=== PATIENT | male | born 2000 | race Caucasian/White ===

== ENCOUNTER 2020-01-31 00:42 | Emergency (ER) | payer MEDICAID, SELFPAY ==
[2020-01-31 00:46] VITALS: BP 144/87; PULSE 105; RESP 16; TEMP 36.7; O2SAT 98; BMI 36.6
--- NOTE | 2020-01-31 02:22 | PC.NURSE ---
PT PRESENTS WITH BILATERAL ORBITAL EDEMA. REPORTS RUBBING EYES EARLIER IN EVENING DUE TO ITCHINESS, USING VISINE, THEN WAKING UP WITH SWOLLEN ORBITS AND LIDS A LITTLE WHILE LATER. NO ORAL ANGIOEDEMA NOTED, PT SPEAKING FULL CLEAR SENTENCES. NO RASHES NOTED. AWAITING MD PRIMARY EVAL. AWARE OF PLAN OF CARE.
--- NOTE | 2020-01-31 02:52 | ED_ITS ---
HPI - Allergic Reaction General Chief complaint: Allergic Reaction Stated complaint: ALLERGIC REACTION Time Seen by Provider: 01/31/20 01:57 Source: patient Mode of arrival: ambulatory Limitations: no limitations History of Present Illness HPI narrative: this is a 19-year-old male who presents with bilateral eye itching this started approximately 6 hours ago and then after taking a nap patient states that he woke up to find his eyes swollen. Patient's recent history is significant for having taken naproxen just prior to this event. He denies taking anything at home for the swelling and otherwise denies any fevers, chills, contact use, injury to the eyes. Patient denies any lip or tongue swelling as well as denying any difficulty with breathing or swallowing. Related Data Allergies Allergy/AdvReac Type Severity Reaction Status Date / Time shrimp Allergy Unknown FACIAL Unverified 12/26/19 17:01 REDNESS AND SWELLING Shrimp (Diagnostic) Allergy Unknown Uncoded 01/19/18 00:00 Review of Systems Review of Systems: Pertinent positives and negatives as stated in HPI and 10 point review of systems is otherwise negative. [facility] Past Medical History Source: nursing notes reviewed Medical History No known health problems Social History Social History Alcohol intake: never Smoking Status: Never smoker Advance Directives: No Physical Exam Vital Signs: Vital Signs: Vital Signs Temp Pulse Resp BP Pulse Ox 01/31/20 00:46 98.0 F 105 H 16 144/87 H 98 Body Mass Index 36.6 VITAL SIGNS: Reviewed. GENERAL: Well developed, well nourished, in no acute distress. HEAD: Normocephalic/atraumatic, EYES: PERRLA, EOMI intact without pain, no nystagmus/pallor/icterus noted , mild bilateral swelling noted to the upper and lower lids of both eyes without conjunctival injection or purulence drainage EARS: Ext canals without abnormality, TMs non-bulging and non-erythematous NOSE: Nares patent bilateral OROPHARYNX: no oral lesions noted, posterior pharynx clear and non-erythematous without noted tonsillar enlargement/erythema/exudates, no lip/tongue swelling or trismus noted and no stridor NECK: Supple, no adenopathy LUNGS: Normal breath sounds. No adventitious sounds or accessory muscle use. SpO2<98> CARDIOVASCULAR: Regular rate and rhythm without noted murmurs, no JVD or lower extremity edema. ABDOMEN: Soft, non-tender, non-distended with bowel sounds. No rigidity. No guarding. No palpable masses or hernias noted MUSCULOSKELETAL: No tenderness, deformities, or effusions noted on gross inspection. EXTREMITIES: No cyanosis, clubbing or edema. SKIN: Inspection of the skin reveals no rashes, ulcerations, jaundice, pallor, or petechiae. NEUROLOGIC: Alert and oriented x 4. Strength and sensation to light touch were grossly intact x 4. Course Course Course Narrative: This is a 19-year-old male with history and clinical presentation consistent with allergic reaction suspect secondary to naproxen use without involvement of the oral or upper airway. Patient was provided with Benadryl and was observed to have gradual improvement of eye swelling. Patient was cautioned to inform any healthcare provider that he is allergic to naproxen. Discharge Plan Discharge Clinical Impression: Allergic reaction Qualifiers: Encounter type: initial encounter Qualified Code(s): T78.40XA - Allergy, unspecified, initial encounter Patient Disposition: Home, Self-Care Instructions: General Allergic Reaction (ED) Additional Instructions: 1. Benadryl, 1 tablet, orally, every 8 hours for the next 24 hours. 2. Visine for allergy eyes, available at every drug store [facility] [place] apply to both eyes as directed on the outside packaging. 3. You are considered to be allergic to naproxen at this time. The patient and/or family acknowledge understanding of results (as applicable), diagnosis, treatment plan, need for follow up, and symptoms that should prompt a return to the emergency room. Referrals: [facility] [Primary Care Provider] - 2 days ( Allergic reaction to naproxen) Interventions: ED Discharge Assessment Last Done: 01/31/20 04:13 Discharge Date/Time: 01/31/20 04:14
[2020-01-31] MEDS: diphenhydrAMINE HCL 25 MG TABLET PO (02:53)
--- NOTE | 2020-01-31 02:53 | PC.NURSE ---
PT MEDICATED PER MAR AWAITING IMPROVEMENT IN SYMPTOMS.
== END 2020-01-31 04:14 | disposition home or self-care (01) ==
PROVIDERS: Emergency Provider Student in an Organized Health Care Education/Training Program
DX: T78.40XA Allergy, unspecified, initial encounter (principal); R22.0 Localized swelling, mass and lump, head; X58.XXXA Exposure to other specified factors, initial encounter
CPT/HCPCS: 99283; 99284; Q0163

== ENCOUNTER 2020-10-25 02:44 | Emergency (ER) | payer MEDICAID, SELFPAY ==
--- NOTE | ~2020-10-25 | XR_ITS ---
EXAMINATION: XR CHEST CLINICAL INFORMATION: Productive cough COMPARISON: 05/02/2019 TECHNIQUE: 2 views of the chest were obtained. FINDINGS: The lungs are clear with no focal consolidation. No evidence of pneumothorax, pulmonary edema, or pleural effusions. The cardiomediastinal silhouette is unremarkable. No acute osseous findings. XR/XR chest 2V IMPRESSION: No acute cardiopulmonary findings.
[2020-10-25 03:19] VITALS: BP 127/65; PULSE 90; RESP 18; TEMP 36.8; O2SAT 96; BMI 44.7
[2020-10-25 04:29] LABS: COVID-19 Test Negative (Negative)
--- NOTE | 2020-10-25 05:06 | ED_ITS ---
HPI - Asthma General Chief Complaint: Upper Respiratory Symptoms Stated Complaint: SOB/cough Time Seen by Provider: 10/25/20 05:05 Source: patient Mode of arrival: ambulatory History of Present Illness HPI Narrative: 20-year-old male with history of asthma comes in with variable problems with nasal congestion, cough, chest tightness and the sensation of shortness of breath. He does describe an isolated incidence of blood-streaked mucus approximately 1 week ago but denies any since that time. Related Data Previous Rx's Medication Instructions Recorded albuterol sulfate [Ventolin HFA] 2 puff INHALATION Q4-6H PRN #1 ea 10/25/20 prednisone 40 mg PO DAILY 4 Days #8 tab 10/25/20 Allergies Allergy/AdvReac Type Severity Reaction Status Date / Time shrimp Allergy Unknown FACIAL Unverified 12/26/19 17:01 REDNESS AND SWELLING Shrimp (Diagnostic) Allergy Unknown Swelling Uncoded 10/25/20 03:18 Review of Systems Review of Systems: Pertinent positives and negatives as stated in HPI and 10 point review of systems is otherwise negative. [facility] Past Medical History Source: nursing notes reviewed Medical History No known health problems Social History Social History Alcohol intake: never Advance Directives: No Advance Directives Information Provided: No Physical Exam Vital Signs: Vital Signs: Last Vital Signs Temp 98.2 F 10/25/20 03:19 Pulse 90 10/25/20 03:19 Resp 18 10/25/20 03:19 BP 127/65 10/25/20 03:19 Pulse Ox 96 10/25/20 03:19 Body Mass Index 44.7 VITAL SIGNS: Reviewed. GENERAL: Well developed, well nourished, in no acute distress. HEAD: Normocephalic/atraumatic EYES: PERRLA, EOMI EARS: Ext canals without abnormality, TMs non-bulging and non-erythematous NOSE: Nasal congestion OROPHARYNX: no oral lesions noted, posterior pharynx clear and non-erythematous without noted tonsillar enlargement/erythema/exudates NECK: Supple, no adenopathy LUNGS: Normal breath sounds. No adventitious sounds or accessory muscle use. SpO2<96> CARDIOVASCULAR: Regular rate and rhythm without noted murmurs ABDOMEN: Soft, non-tender, non-distended with bowel sounds. SKIN: Inspection of the skin reveals no rashes NEUROLOGIC: Alert and oriented x 4. Course Course Course Narrative: 20-year-old male with history and clinical presentation consistent with mild asthma exacerbation and review of all investigations otherwise negative for acute findings. Patient was provided with initial steroids as well as albuterol treatment and discharged home in stable condition. MDM - Asthma Lab Data Labs: Lab Results 10/25/20 Range/Units 04:04 COVID-19 (ADAN) Negative (Negative) COVID-19 Clin Com See Note Discharge Plan Discharge Clinical Impression: Asthma exacerbation Patient Disposition: Home, Self-Care Instructions: Albuterol (By breathing), Prednisone (By mouth), Loratadine (By mouth), Fluticasone (Into the nose), Asthma (ED) Additional Instructions: 1. Recommend that you start using [id number] loratadine (Claritin) as well as Flonase for better control of your asthma. 2. Please follow-up with your primary care provider in the next 2-3 days for re- evaluation and further outpatient management. Return to the ER for acute worsening of symptoms. Prescriptions: New prednisone 20 mg tablet 40 mg PO DAILY 4 Days Qty: 8 RF: 0 albuterol sulfate [Ventolin HFA] 90 mcg/actuation HFA aerosol inhaler 2 puff inhalation Q4-6H PRN (Reason: shortness of breath or wheezing) Qty: 1 RF: 0 Referrals: Physician,Unknown [Primary Care Provider] - 2 days
[2020-10-25] MEDS: predniSONE 20 MG TABLET 40 MG PO (05:14)
[2020-10-25] MEDS: Albuterol Sulfate 90 MCG 8 GM INHALER 4 PUFF INHALE (05:14)
[2020-10-25 05:15] VITALS: BP 128/68; PULSE 86; RESP 19; O2SAT 96
== END 2020-10-25 05:20 | disposition home or self-care (01) ==
PROVIDERS: Emergency Provider Student in an Organized Health Care Education/Training Program
DX: J45.901 Unspecified asthma with (acute) exacerbation (principal); R06.02 Shortness of breath; Z20.822 Contact with and (suspected) exposure to COVID-19
CPT/HCPCS: 36415; 71046; 87635; 99283

== ENCOUNTER 2021-12-07 22:16 | Emergency (ER) | payer MEDICAID, SELFPAY ==
--- NOTE | ~2021-12-07 | XR_ITS ---
EXAMINATION: XR HAND, LEFT CLINICAL INFORMATION: Pain. Decreased range of motion. COMPARISON: None TECHNIQUE: PA, lateral, and oblique views of the left hand. FINDINGS: The bones and soft tissues are normal. No fracture. Alignment is anatomic. Joint spaces are maintained. No erosions or soft tissue calcifications. XR/XR hand LT min 3V IMPRESSION: Normal left hand.
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
[2021-12-07 22:19] VITALS: BP 149/91; PULSE 100; RESP 18; TEMP 37.2; O2SAT 97; BMI 45.3
[2021-12-07 22:23] VITALS: BP 132/74; PULSE 106; O2SAT 98
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
[2021-12-08 00:30] VITALS: BP 120/64; PULSE 73; RESP 18; TEMP 36.6; O2SAT 95
[2021-12-08] MEDS: Acetaminophen 325 MG TABLET 975 MG PO (00:42)
[2021-12-08] MEDS: Ibuprofen 600 MG TABLET PO (00:42)
== END 2021-12-08 01:05 | disposition home or self-care (01) ==
PROVIDERS: Emergency Provider Internal Medicine
DX: S16.1XXA Strain of muscle, fascia and tendon at neck level, initial encounter (principal); S39.012A Strain of muscle, fascia and tendon of lower back, initial encounter; S60.222A Contusion of left hand, initial encounter; V43.52XA Car driver injured in collision with other type car in traffic accident, initial encounter; R51.9 Headache, unspecified; Y93.89 Activity, other specified; Y92.414 Local residential or business street as the place of occurrence of the external cause; Y99.9 Unspecified external cause status
CPT/HCPCS: 70450; 72125; 73130; 99284

== ENCOUNTER 2022-04-09 06:04 | Emergency (ER) | payer MEDICAID, SELFPAY ==
--- NOTE | ~2022-04-09 | XR_ITS ---
EXAMINATION: XR CHEST CLINICAL INFORMATION: Cough and fever COMPARISON: October 25, 2020 TECHNIQUE: 2 views of the chest were obtained. FINDINGS: No significant abnormality is noted involving the heart, lungs, mediastinum, bony thorax or soft tissues. XR/XR chest 2V IMPRESSION: No acute disease.
[2022-04-09 06:20] VITALS: BP 157/82; PULSE 99; RESP 20; TEMP 36.2; O2SAT 96; BMI 43.5
[2022-04-09 06:47] LABS: COVID-19 Test Negative (Negative); IDNOW Serial# 16C4AD1C
[2022-04-09 06:50] LABS: IDNOW Serial# BCCEAD1C; Influenza A Positive (Negative); Influenza B2 Negative (Negative)
[2022-04-09 07:01] VITALS: BP 126/82; PULSE 99; RESP 15; TEMP 37.1; O2SAT 95
--- NOTE | 2022-04-09 07:03 | ED_ITS ---
HPI - General Adult General Chief complaint: Upper Respiratory Symptoms Stated complaint: multiple complaints Time Seen by Provider: 04/09/22 06:43 Source: patient Limitations: no limitations History of Present Illness HPI narrative: This is 21-year-old male who has been ill for over a week with cough, intermittent fevers, diarrhea, sore throat. The patient notes he has history of asthma and has run out of his inhaler. He has some right posterior chest pain that is worse when he coughs. He denies being short of breath. Denies nausea vomiting, has been able to take fluids but has had poor appetite. Related Data Previous Rx's Medication Instructions Recorded albuterol sulfate 90 mcg/actuation 2 puff inhalation Q4-6H PRN 10/25/20 aerosol inhaler (Ventolin HFA) shortness of breath or wheezing #1 ea prednisone 20 mg tablet 40 mg PO DAILY 4 days #8 tabs 10/25/20 acetaminophen 500 mg tablet 1,000 mg PO QID PRN pain #30 tabs 12/08/21 cyclobenzaprine 5 mg tablet 5 mg PO TID PRN muscle spasm #14 12/08/21 tabs ibuprofen 600 mg tablet 600 mg PO Q6H PRN pain #20 tabs 12/08/21 albuterol sulfate 90 mcg/actuation 2 puff inhalation Q4-6H PRN 04/09/22 aerosol inhaler (ProAir HFA) shortness of breath or wheezing #8.5 grams vlvlkfqftjlrzxj-fzycqwydtpszy-FV 4 10 ml PO Q4H 7 days #420 mL 04/09/22 mg-10 mg-20 mg/5 mL oral liquid ibuprofen 600 mg tablet 600 mg PO Q6H PRN pain #30 tabs 04/09/22 Allergies Allergy/AdvReac Type Severity Reaction Status Date / Time shrimp Allergy Unknown FACIAL Verified 04/09/22 06:23 REDNESS AND SWELLING Shrimp (Diagnostic) Allergy Unknown Swelling Uncoded 04/09/22 06:23 Review of Systems Review of Systems: Yes all other systems are reviewed and are negative Constitutional: Constitutional: Reports as per HPI, Reports body ache(s) and Reports fever(s) Eyes: Eyes: Reports as per HPI and Reports no additional eye complaints ENT: Reports system reviewed and no additional complaints, except as documented, Reports as per HPI, Reports nasal congestion and Reports sore throat Cardiovascular: Cardiovascular: Reports as per HPI, Reports chest pain and Denies dyspnea Respiratory: Respiratory: Reports as per HPI, Reports cough and Denies dyspnea Gastrointestinal: Gastrointestinal: Reports as per HPI, Denies abdominal pain, Reports diarrhea and Denies vomiting Genitourinary: Genitourinary: Reports as per HPI, Denies hematuria, Denies dysuria and Denies urinary frequency Musculoskeletal: Musculoskeletal: Reports no additional musculoskeletal complaints and Denies numbness Integumentary/Breasts: Skin/Breast: Reports as per HPI and Denies rash Neurologic: Reports as per HPI, Denies focal weakness and Denies numbness Psychiatric: Psychiatric: Reports no additional psychiatric complaints and Reports as per HPI Endocrine: Endocrine: Reports no additional endocrine complaints and Reports as per HPI Hematologic/Lymphatic: Hematologic/Lymphatic: Reports no additional hematologic/lymphatic complaints, Reports as per HPI and Reports other (No peripheral edema) [facility] Past Medical History Medical History No known health problems Social History Social History Alcohol intake: never Advance Directives: No Advance Directives Information Provided: Yes Physical Exam ED Vital Signs: Vital Signs - 24 hr 04/09/22 06:20 04/09/22 07:01 04/09/22 08:09 Temperature 97.2 F 98.8 F Pulse Rate 99 99 99 Respiratory Rate 20 15 16 Blood Pressure 157/82 H 126/82 Pulse Oximetry 96 95 Oxygen Delivery Method Room Air Room Air BMI result Body Mass Index 43.5 Const General: no acute distress Orientation/consciousness: patient oriented x3 HENMT Head: Yes normal to inspection General nose exam: Normal external nose present Mouth: moist mucous membranes Throat: Yes posterior oropharynx normal, Yes tonsils normal and Yes uvula midline Eyes Eyelids: Yes eyelids normal Conjunctivae: conjunctivae normal Pupils: Equal, round and reactive pupils present Neck Neck: Yes supple Resp Effort & Inspection: normal respiratory effort Auscultation: clear to auscultation bilaterally Cardio Rate: regular rate Rhythm: regular rhythm Heart sounds: S1 normal heart sound present, S2 normal heart sound present, no gallops, no murmurs and no rubs GI Inspection: No distended Palpation (GI): Soft to palpation and nontender Auscultation: normal bowel sounds Skin General skin exam: other (Warm and dry) Neuro General: patient oriented x3 and CN's II-XI intact bilaterally Cranial nerves: Yes Equal, round and reactive pupils present Extrem General: Yes no pedal edema Psych Affect: normal affect Attitude: cooperative Medications Administered Discontinued Medications Generic Name Dose Route Start Last Admin Trade Name Freq PRN Reason Stop Dose Admin Albuterol Sulfate 2.5 mg 04/09/22 07:01 04/09/22 08:08 Albuterol Sulfate (0.083%) 2.5 Mg/3 Ml Vial.Neb INHALE 04/09/22 07:02 2.5 mg ONCE ONE Administration Ibuprofen 600 mg 04/09/22 07:01 04/09/22 07:32 Ibuprofen 600 Mg Tablet PO 04/09/22 07:02 600 mg ONCE ONE Administration Medical Decision Making Medical Decision Making [facility] Narrative: Patient with flu symptoms for 3 days. Patient is positive for influenza A. Chest x-ray negative. Patient is out of the window for Tamiflu. Will treat with cough medicine, antipyretics, recommend p.o. fluid Lab Data [facility] Lab Attestation statement: I reviewed the patient's lab results. Labs: Lab Results 04/09/22 04/09/22 Range/Units 06:25 06:25 COVID-19 (ADAN) Negative (Negative) COVID-19 Clin Com See Note Influenza Type A (WANDER) Positive A (Negative) Influenza Type B (WANDER) Negative (Negative) Influenza A & B Note See Note Radiology Impression Discussion of test interpretation with radiology: I have reviewed the radiologist's reading. Radiologist Impression: Chest x-ray: No acute pathology Discharge Plan Discharge Clinical Impression: Influenza A Patient Disposition: Home, Self-Care Instructions: Influenza (ED) Additional Instructions: Use ibuprofen for pain or fever. Use the cough medicine to help suppress your cough. Use albuterol for your asthma as needed. Return for any new or worsened symptoms. Prescriptions: New ibuprofen 600 mg tablet 600 mg PO Q6H PRN (Reason: pain) Qty: 30 0RF pbpjieoztqtxad-kjcvfwiworbz-GO 4-10-20 mg/5 mL liquid 10 ml PO Q4H 7 Days Qty: 420 0RF Rx Instructions: Maximum 4 doses per day albuterol sulfate [ProAir HFA] 90 mcg/actuation HFA aerosol inhaler 2 puff inhalation Q4-6H PRN (Reason: shortness of breath or wheezing) Qty: 8.5 0RF No Action prednisone 20 mg tablet 40 mg PO DAILY 4 Days Qty: 8 0RF albuterol sulfate [Ventolin HFA] 90 mcg/actuation HFA aerosol inhaler 2 puff inhalation Q4-6H PRN (Reason: shortness of breath or wheezing) Qty: 1 0RF acetaminophen 500 mg tablet 1,000 mg PO QID PRN (Reason: pain) Qty: 30 0RF cyclobenzaprine 5 mg tablet 5 mg PO TID PRN (Reason: muscle spasm) Qty: 14 0RF Rx Instructions: This medication may cause drowsiness so no driving for 8 hours after taking ibuprofen 600 mg tablet 600 mg PO Q6H PRN (Reason: pain) Qty: 20 0RF Interventions: ED Discharge Assessment Last Done: 04/09/22 08:18 Discharge Date/Time: 04/09/22 08:18
--- NOTE | 2022-04-09 07:13 | PC.NURSE ---
assumed care of patient, pt aox3, calm and cooperative, VSS, plan for duoneb and ibuprofen
[2022-04-09] MEDS: Ibuprofen 600 MG TABLET PO (07:32)
[2022-04-09] MEDS: Albuterol Sulfate (0.083%) 2.5 MG/3 ML VIAL.NEB INHALE (08:08)
[2022-04-09 08:09] VITALS: PULSE 99; RESP 16; O2SAT 95
== END 2022-04-09 08:18 | disposition home or self-care (01) ==
PROVIDERS: Emergency Provider Emergency Medicine
DX: J11.1 Influenza due to unidentified influenza virus with other respiratory manifestations (principal); Z20.822 Contact with and (suspected) exposure to COVID-19
CPT/HCPCS: 71046; 87502; 87635; 94640; 99284

== ENCOUNTER 2023-12-02 01:57 | Emergency (ER) | payer MEDICAID, SELFPAY ==
--- NOTE | ~2023-12-02 | CT_ITS ---
EXAMINATION: CT HEAD WITHOUT CONTRAST CLINICAL INFORMATION: Closed head injury COMPARISON: CT head 12/07/2021 TECHNIQUE: Contiguous axial imaging was performed from the skull base to vertex without intravenous administration of contrast. This CT examination was performed using dose optimization techniques as appropriate, variously including the following: *Automated exposure control *Adjustment of mA and/or kV according to patient size (this includes techniques or standardized protocols for targeted exams where dose is matched to indication/reason for exam; i.e. extremities or head) *Use of iterative reconstruction technique DLP: 934 mGy-cm FINDINGS: CT head: No intracranial hemorrhage, tumors or acute infarcts identified. The orbits and globes are normal in appearance. Ventricles and sulci are normal in size and configuration. Incidental note made of a 7 mm dense ossification associated with the right parasagittal frontal bone which may represent an incidental osteoma. No significant opacification of the visualized paranasal sinuses, mastoid air cells and middle ear cavities. CT/CT head/brain wo IV con IMPRESSION: Normal unenhanced CT of the head. Electronically signed by: Isac Darden MD 12/02/2023 03:00 AM EDT
[2023-12-02 01:58] VITALS: BP 124/82; PULSE 95; RESP 18; TEMP 36.8; O2SAT 97; BMI 40.9
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
[2023-12-02 02:14] VITALS: BP 127/73; PULSE 83; RESP 17; TEMP 37.2; O2SAT 98
[2023-12-02 03:50] VITALS: BP 114/66; PULSE 79; RESP 20; TEMP 37.2; O2SAT 98
[2023-12-02 04:01] VITALS: BP 114/66; PULSE 79; RESP 20; TEMP 37.2; O2SAT 98
== END 2023-12-02 04:01 | disposition home or self-care (01) ==
PROVIDERS: Emergency Provider Internal Medicine
DX: S01.312A Laceration without foreign body of left ear, initial encounter (principal); Y08.02XA Assault by strike by baseball bat, initial encounter; Y93.9 Activity, unspecified; Y92.9 Unspecified place or not applicable; Y99.9 Unspecified external cause status
CPT/HCPCS: 12011; 70450; 99284

== ENCOUNTER 2024-04-11 01:37 | Emergency (ER) | payer MEDICAID, SELFPAY ==
--- NOTE | ~2024-04-11 | CT_ITS ---
CLINICAL HISTORY: headache Exam: CT head without intravenous contrast. Comparison: December 02, 2023. Findings: Cavum septum pellucidum ventricular variant is evident. No hydrocephalus. Attenuation of the brain parenchyma is within normal limits. Lainez-white differentiation is well preserved. No intracranial hemorrhage. No midline shift or mass effect. Mild mucosal thickening within the left ethmoid air cells with edema along the left nasal turbinates. No air-fluid level seen within the paranasal sinuses. No calvarial fractures. Impression: 1. No acute intracranial findings. 2. Mild left ethmoid sinus disease with mucosal edema throughout the left nasal turbinates. This document has been electronically signed by: Keith Field MD on 04/11/2024 05:27:22
[2024-04-11 01:42] VITALS: BP 153/95; PULSE 96; RESP 20; TEMP 36.8; O2SAT 99; BMI 43.3
[2024-04-11] MEDS: Acetaminophen 325 MG TABLET 975 MG PO (03:17)
[2024-04-11 03:39] VITALS: BP 146/70; PULSE 83; RESP 16; TEMP 36.8; O2SAT 98
--- NOTE | 2024-04-11 04:38 | ED_ITS ---
HPI - Headache General Chief Complaint: Headache Stated Complaint: dizziness, sharp pain on top of head Time Seen by Provider: 04/11/24 04:33 Source: patient Mode of arrival: ambulatory Limitations: no limitations History of Present Illness ED Provider: DR. Henning HPI Narrative: 23-year-old male came in for evaluation of headache and feeling dizzy, generalized body ache symptoms started after sniffing cocaine, patient also feels generalized weakness, sneezing, sore throat no other sick contacts. Related Data Previous Rx's ?Medication ?Instructions ?Recorded albuterol sulfate 90 mcg/actuation 2 puff inhalation Q4-6H PRN 10/25/20 aerosol inhaler (Ventolin HFA) shortness of breath or wheezing #1 ea prednisone 20 mg tablet 40 mg (2 x 20 mg) PO DAILY 4 days 10/25/20 #8 tabs acetaminophen 500 mg tablet 1,000 mg (2 x 500 mg) PO QID PRN 12/08/21 pain #30 tabs cyclobenzaprine 5 mg tablet 5 mg PO TID PRN muscle spasm #14 12/08/21 tabs ibuprofen 600 mg tablet 600 mg PO Q6H PRN pain #20 tabs 12/08/21 albuterol sulfate 90 mcg/actuation 2 puff inhalation Q4-6H PRN 04/09/22 aerosol inhaler (ProAir HFA) shortness of breath or wheezing #8.5 grams biormwvwqxwkxhr-ftwkzsgacumsw-HQ 4 10 ml PO Q4H 7 days #420 mL 04/09/22 mg-10 mg-20 mg/5 mL oral liquid ibuprofen 600 mg tablet 600 mg PO Q6H PRN pain #30 tabs 04/09/22 Allergies Allergy/AdvReac Type Severity Reaction Status Date / Time shrimp Allergy Unknown FACIAL Verified 04/11/24 01:47 REDNESS AND SWELLING Shrimp (Diagnostic) Allergy Unknown Swelling Uncoded 04/11/24 01:47 Review of Systems Review of Systems: All other systems are reviewed and are negative Constitutional: Reports as per HPI and Reports no additional constitutional complaints Eyes: Reports as per HPI and Reports no additional eye complaints Reports system reviewed and no additional complaints, except as documented Cardiovascular: Reports as per HPI and Reports no additional cardiovascular complaints Respiratory: Reports as per HPI and Reports no additional respiratory complaints Gastrointestinal: Reports as per HPI and Reports no additional gastrointestinal complaints Genitourinary: Reports no additional female genitourinary complaints Musculoskeletal: Reports no additional musculoskeletal complaints Skin/Breast: Reports system reviewed and no additional complaints, except as docu Psychiatric: Reports no additional psychiatric complaints Endocrine: Reports no additional endocrine complaints Hematologic/Lymphatic: Reports no additional hematologic/lymphatic complaints Allergic/Immunologic: Reports no additional allergic/immunologic complaints Reports system reviewed and no additional complaints, except as documented and Reports Abnormal speech present [facility] Past Medical History Medical History No known health problems Social History Social History Alcohol intake: current Alcohol intake frequency: holidays/special occasions only Smoked in Last 30 Days: Yes Use of substances other than those prescribed or required for medical reasons: Yes Substance Use Type: Crack/Cocaine Advance Directives: No Advance Directives Information Provided: Yes Physical Exam Vital Signs: Vital Signs: Last Vital Signs Temp 98.3 F 04/11/24 05:46 Pulse 79 04/11/24 05:46 Resp 18 04/11/24 05:46 BP 123/69 04/11/24 05:46 Pulse Ox 97 04/11/24 05:46 O2 Del Method Room Air 04/11/24 05:46 BMI result Body Mass Index 43.3 Vital signs have been reviewed and appear to be correct. Blood pressure elevated. Heart rate normal. Respiratory rate normal. Temperature normal. Oxygen saturation normal. Appearance: Alert. Oriented X3. No acute distress. Head: Normal external exam. Normocephalic. Atraumatic. No Hamilton signs noted. No raccoon eyes noted Eyes: PERRLA. EOMI. Conjunctiva and sclera normal. Eyelids normal. ENT: TM's Normal. Pharynx normal. Uvula midline. Moist mucous membranes. No trismus noted. No drooling noted. No muffled voice noted. Neck: Normal inspection. Neck supple. FROM. No adenopathy. Thyroid Normal. No meningeal signs. No neck mass noted. CVS: Normal heart rate and rhythm. Heart sound normal. No murmurs noted. Pulses normal throughout. Respiratory: No respiratory distress. Painless inspiration. Breath sounds normal. No wheezes/rales/rhonchi noted. Chest nontender. No accessory muscle usage noted or decreased air movement noted. Abdomen: Soft and nontender. Bowel sounds normal in all 4 quadrants. No distention noted. No organomegaly noted. No visible injury noted. Back: No CVA tenderness. Full range of motion noted. Skin: Skin warm and dry. Normal skin color. Normal skin turgor. No rashes/lesions/lacerations noted. Extremities: No lower extremity edema. Extremities exhibit normal range of motion. Extremities nontender. Neuro: Mental status: Normal attention, orientation, memory, and affect. Cranial nerves: Pupils are equal, round and reactive to light, EOMI, visual kapadia are fall, face is symmetric, facial sensations are normal. Motor examination normal muscle tone, strength to 4 extremities. DTR are +2, planter's are flexor. Sensory exam; normal coordination, no ataxia, gait stable. Cerebellar exam: Orfftx-tt-ijhe and ppdw-hn-mjwb is normal. Extrapyramidal system: No tremors, no rigidity with normal facial expressions. Pronator drift not present Course Reevaluation(s) Reevaluation #1: Feels better after he take a nap in the emergency department, CT head shows no acute intracranial pathology. Time: 07:00 Medications Administered Discontinued Medications Generic Name Dose Route Start Last Admin Trade Name Freq PRN Reason Stop Dose Admin Acetaminophen 975 mg 04/11/24 03:10 04/11/24 03:17 Acetaminophen 325 Mg Tablet PO 04/11/24 03:11 975 mg ONCE ONE Administration Sodium Chloride 1,000 mls @ 999 mls/hr 04/11/24 04:41 04/11/24 05:14 Ns IV 04/11/24 05:41 999 mls/hr .Q1H1M ONE Administration Ketorolac Tromethamine 15 mg 04/11/24 04:41 04/11/24 05:14 Ketorolac Tromethamine 15 Mg/Ml Vial IVPUSH 04/11/24 04:42 15 mg ONCE ONE Administration Medical Decision Making Differential Diagnosis Differential Diagnoses: The differential diagnosis associated with the presentation includes (Intracranial bleed, viral infection, cocaine overdose, electrolyte derangement, severe anemia.) Admission/Observation Consideration of admission/observation: Escalation of care including admission/observation considered Lab Data MDM Lab Attestation statement: I reviewed the patient's lab results. Independent Interpretation I performed an independent interpretation of an: CT Scan (Head: No acute intracranial pathology.) Radiology Impression Discussion of test interpretation with radiology: I have reviewed the radiolo gist's reading. Discharge Plan Discharge Clinical Impression: Headache, Substance abuse Patient Disposition: Home, Self-Care Instructions: Polysubstance Abuse (ED) Prescriptions: No Action prednisone 20 mg tablet 40 mg PO DAILY 4 Days Qty: 8 0RF albuterol sulfate [Ventolin HFA] 90 mcg/actuation HFA aerosol inhaler 2 puff inhalation Q4-6H PRN (Reason: shortness of breath or wheezing) Qty: 1 0RF acetaminophen 500 mg tablet 1,000 mg PO QID PRN (Reason: pain) Qty: 30 0RF cyclobenzaprine 5 mg tablet 5 mg PO TID PRN (Reason: muscle spasm) Qty: 14 0RF Rx Instructions: This medication may cause drowsiness so no driving for 8 hours after taking ibuprofen 600 mg tablet 600 mg PO Q6H PRN (Reason: pain) Qty: 20 0RF ibuprofen 600 mg tablet 600 mg PO Q6H PRN (Reason: pain) Qty: 30 0RF fmajjzsromwlbs-iyjemksowwwx-WI 4-10-20 mg/5 mL liquid 10 ml PO Q4H 7 Days Qty: 420 0RF Rx Instructions: Maximum 4 doses per day albuterol sulfate [ProAir HFA] 90 mcg/actuation HFA aerosol inhaler 2 puff inhalation Q4-6H PRN (Reason: shortness of breath or wheezing) Qty: 8.5 0RF Print Language: Georgian
[2024-04-11] MEDS: Ketorolac Tromethamine 15 MG/ML VIAL IVPUSH (05:14)
[2024-04-11] MEDS: 0.9 % Sodium Chloride 1,000 ML 999 ML IV (05:14)
[2024-04-11 05:46] VITALS: BP 123/69; PULSE 79; RESP 18; TEMP 36.8; O2SAT 97
[2024-04-11 06:46] LABS: Influenza A PCR NEGATIVE (Negative); Influenza B PCR NEGATIVE (Negative); Resp Syncy Virus RNA Qual PCR NEGATIVE (Negative); SARS COV2 PCR INHOUSE NEGATIVE (Negative)
[2024-04-11 07:06] VITALS: BP 123/69; PULSE 79; RESP 18; TEMP 36.8; O2SAT 97
== END 2024-04-11 07:07 | disposition home or self-care (01) ==
PROVIDERS: Emergency Provider Emergency Medicine
DX: R51.9 Headache, unspecified (principal); F14.10 Cocaine abuse, uncomplicated; J02.9 Acute pharyngitis, unspecified; R42 Dizziness and giddiness; M79.10 Myalgia, unspecified site; R11.0 Nausea; Z03.818 Encounter for observation for suspected exposure to other biological agents ruled out
CPT/HCPCS: 0241U; 70450; 96361; 96374; 99284; 99285; J1885

== ENCOUNTER → 2024-04-11 04:38 | Outpatient (BNV) | payer MEDICAID, SELFPAY | PROVIDERS: Emergency Provider Emergency Medicine; Visit Provider Radiology Diagnostic Radiology | DX: R51.9 Headache, unspecified (principal) | CPT/HCPCS: 70450 ==

== ENCOUNTER 2024-08-04 02:44 | Emergency (ER) | payer MEDICAID, SELFPAY ==
--- NOTE | 2024-08-04 | ECG_ITS ---
Test Reason : CP Blood Pressure : */* mmHG Vent. Rate : 97 BPM Atrial Rate : 97 BPM P-R Int : 144 ms QRS Dur : 86 ms QT Int : 380 ms P-R-T Axes : 57 214 28 degrees QTcB Int : 483 ms Normal sinus rhythm with sinus arrhythmia Right superior axis deviation Abnormal ECG When compared with ECG of 15-Jun-2011 08:33, No significant changes seen Referred By: Generic ED Physician Electronically Signed By: ALISON HELM
--- NOTE | ~2024-08-04 | XR_ITS ---
CLINICAL HISTORY: cp sob 2 view chest x-ray. Comparison: None Findings: The lungs appear clear. There is no consolidation, effusion, or pneumothorax. Heart size is normal. There is pneumomediastinum with extension of subcutaneous gas into the neck. IMPRESSION: Pneumomediastinum. This document has been electronically signed by: Eduard Aguilera MD on 08/04/2024 03:43:57
[2024-08-04 02:51] VITALS: BP 117/70; PULSE 90; RESP 22; TEMP 36.8; O2SAT 100; BMI 35.6
--- NOTE | 2024-08-04 03:00 | ED_ITS ---
HPI - Chest Pain General Chief Complaint: Chest Pain Stated Complaint: chest pain Time Seen by Provider: 08/04/24 03:00 History of Present Illness ED Provider: Valerie MANCINI narrative: The patient is a 24-year-old male who used cocaine at around 4 PM this afternoon. Later he he was smoking when he gradually developed a sense of pain in his chest and a sense of swelling in his neck. He says that he has a fairly heavy smoker. The symptoms of discomfort in his chest and the sense of swelling in his neck worsened throughout the night and he finally came to the emergency room. He has never had an episode like this before. He says that he uses cocaine nasally. He does not use any other drugs he says. He says that the symptoms came on gradually. He denies any sudden onset to the chest pain or neck symptoms. He denies any severe or violent coughing fit. He denies any vomiting. The patient has been feeling well earlier in the day. He denies any other medical history and takes no regular medications. Related Data Previous Rx's ?Medication ?Instructions ?Recorded albuterol sulfate 90 mcg/actuation 2 puff inhalation Q4-6H PRN 10/25/20 aerosol inhaler (Ventolin HFA) shortness of breath or wheezing #1 ea prednisone 20 mg tablet 40 mg (2 x 20 mg) PO DAILY 4 days 10/25/20 #8 tabs acetaminophen 500 mg tablet 1,000 mg (2 x 500 mg) PO QID PRN 12/08/21 pain #30 tabs cyclobenzaprine 5 mg tablet 5 mg PO TID PRN muscle spasm #14 12/08/21 tabs ibuprofen 600 mg tablet 600 mg PO Q6H PRN pain #20 tabs 12/08/21 albuterol sulfate 90 mcg/actuation 2 puff inhalation Q4-6H PRN 04/09/22 aerosol inhaler (ProAir HFA) shortness of breath or wheezing #8.5 grams ztlgmbfthbkebhs-slekpaijjqqhr-VU 4 10 ml PO Q4H 7 days #420 mL 04/09/22 mg-10 mg-20 mg/5 mL oral liquid ibuprofen 600 mg tablet 600 mg PO Q6H PRN pain #30 tabs 04/09/22 acetaminophen 500 mg capsule 1,000 mg (2 x 500 mg) PO Q8H PRN 08/04/24 fever or pain #14 caps ibuprofen 400 mg tablet 400 mg PO Q6H PRN pain #14 tabs 08/04/24 Allergies Allergy/AdvReac Type Severity Reaction Status Date / Time shrimp Allergy Unknown FACIAL Verified 08/04/24 02:54 REDNESS AND SWELLING Shrimp (Diagnostic) Allergy Unknown Swelling Uncoded 08/04/24 02:54 Review of Systems 2 Review of Systems: Yes all other systems are reviewed and are negative [facility] Past Medical History Medical History No known health problems Social History Social History Alcohol intake: current Alcohol intake frequency: holidays/special occasions only Substance Use Type: Crack/Cocaine Physical Exam 2 Vital Signs: Vital Signs: Last Vital Signs Temp 98 F 08/04/24 07:03 Pulse 78 08/04/24 07:03 Resp 12 08/04/24 07:03 BP 113/62 08/04/24 07:03 Pulse Ox 95 08/04/24 07:03 O2 Del Method Room Air 08/04/24 07:03 O2 Flow Rate 2 08/04/24 03:45 BMI result Body Mass Index 35.6 Const: Other: The patient is a 24-year-old male who is awake and alert. He looked quite anxious. He had some injection to the conjunctivae of his eyes. HEENT: Other: The face is symmetrical. Mucous membranes are moist. The posterior pharynx is unremarkable. Eyes: Other: Conjunctivae are injected. Pupils are round equal, extraocular movements intact, no icterus. Neck: Other: With palpation there is subcutaneous emphysema apparent in the soft tissues of the anterior neck. Chest: Other: the chest wall does not seem to have subcutaneous emphysema. Resp: Effort & Inspection: normal respiratory effort Auscultation: clear to auscultation bilaterally Cardio: Rate: regular rate Rhythm: regular rhythm Heart sounds: S1 normal heart sound present and S2 normal heart sound present GI: Other: Abdomen is soft nontender Skin: Other: there is subcutaneous emphysema appreciable with palpation of the anterior neck. Otherwise the skin is unremarkable. Neuro: Other: The patient was awake and alert. On arrival he seemed quite anxious and apprehensive. Cranial nerves were intact. He moved his extremities normally and seemed otherwise neurologically intact. Extrem: Other: No peripheral edema Medications Administered Discontinued Medications Generic Name Dose Route Start Last Admin Trade Name Paresh PRN Reason Stop Dose Admin Diazepam 5 mg 08/04/24 03:24 08/04/24 03:28 Diazepam 10 Mg/2 Ml Cartridge IVPUSH 08/04/24 03:25 5 mg STAT STA Administration Sodium Chloride 1,000 mls @ 999 mls/hr 08/04/24 03:45 08/04/24 05:46 Ns IV 08/04/24 04:45 Infused .Q1H1M MULU Infusion Acetaminophen 1,000 mg in 100 mls @ 400 mls/hr 08/04/24 03:32 08/04/24 04:04 Ofirmev IV 08/04/24 03:46 Infused ONCE ONE Infusion Ketorolac Tromethamine 10 mg 08/04/24 03:32 08/04/24 03:43 Ketorolac Tromethamine 15 Mg/Ml Vial IVPUSH 08/04/24 03:33 10 mg ONCE ONE Administration Medical Decision Making Medical Decision Making [facility] Narrative: patient presents with chest and anterior neck pain after insufflation of cocaine. I was asked to see the patient at triage where he seemed to have subcutaneous emphysema at the anterior neck. A chest x-ray is obtained that indicated no mediastinum with subcutaneous emphysema in the soft tissues of the neck bilaterally. There was no pneumothorax. The patient was treated symptomatically with IV diazepam, IV ketorolac, and IV acetaminophen. He was placed on oxygen via OxyMask. He was observed for several hours. He seemed to feel much better over time. Pneumomediastinum as a consequence of cocaine insufflation seems to be documented in case reports. The natural history of pneumomediastinum tends to be benign. I think he looks well enough that he can be managed as an outpatient with observation at home. He should return if worse. He was advised to avoid activities which could worsen pneumomediastinum including straining, lifting, coughing, vomiting, and use of cocaine. Lab Data 08/04/24 03:08 08/04/24 03:08 Labs: Lab Results 08/04/24 08/04/24 Range/Units 03:08 03:24 WBC 17.1 H (4.8-10.8) X10*3/uL RBC 5.90 H (4.60-5.80) X10*6/uL Hgb 15.9 (14.0-18.0) g/dl Hct 47.1 (42.0-52.0) % MCV 79.8 L (80.0-98.0) fL MCH 26.9 L (27.0-33.0) pg MCHC 33.8 (31.0-36.0) g/dl RDW 13.9 (11.0-16.0) % Plt Count 239 (160-400) X10*3/uL MPV 10.1 (9.4-12.4) fL Immature Gran % (Auto) 0.5 H (0.0-0.4) % Neut % (Auto) 73.9 H (45-73) % Lymph % (Auto) 14.7 L (20-40) % [place] % (Auto) 9.7 (2-11) % Eos % (Auto) 1.0 (0-4) % Baso % (Auto) 0.2 (0-2) % Lymph # (Auto) 2.5 (1.2-4.9) X10*3/uL [place] # (Auto) 1.7 H (0.1-1.2) X10*3/uL Eos # (Auto) 0.2 (0.0-0.4) X10*3/uL Baso # (Auto) 0.0 (0.0-0.2) X10*3/uL Abs Immat Gran (auto) 0.09 H (0.00-0.03) X10*3/uL Absolute Neuts (auto) 12.6 H (2.0-8.3) x10*3/uL Absolute Nucleated RBC 0.000 (0.0-0.012) X10*3/uL Nucleated RBC % (auto) 0.0 (0.0-0.2) /100WBC Smear Tech's Comments VERIFIED Sodium 142 (135-145) mmol/L Potassium 3.4 (3.3-5.1) mmol/L Chloride 105 (96-108) mmol/L Carbon Dioxide 23 (22-29) mmol/L Anion Gap 17 (12-20) BUN 17 H (9-16) mg/dL Creatinine 1.02 (0.5-1.4) mg/dL Estim Creat Clear Calc 150.4 Estimated GFR > 60 Random Glucose 112 (60-115) mg/dL Calcium 9.9 (8.4-10.2) mg/dL Total Bilirubin 1.1 H (0.0-1.0) mg/dL AST 26 (5-37) U/L ALT 22 (0-40) U/L Alkaline Phosphatase 92 (39-117) U/L Troponin I High Sens < 2.7 (<3.5-35.0) ng/L Total Protein 7.3 (6.5-8.0) g/dL Albumin 4.6 (3.5-5.0) g/dL Influenza Type A (PCR) NEGATIVE (Negative) Influenza Type B (PCR) NEGATIVE (Negative) RSV RNA Qual (PCR) NEGATIVE (Negative) SARS-CoV-2 RNA (RT-PCR) NEGATIVE (Negative) S. pyogenes GrpA WANDER Negative (Negative) Discharge Plan Discharge Clinical Impression: Pneumomediastinum Patient Disposition: Home, Self-Care Additional Instructions: Your chest x-ray shows that you have a phenomenon known as ?pneumomediastinum. Pneumomediastinum is a condition which occurs when some air leaks out of the middle of your lungs. This can often happen with significant changes in pressure that can occur with severe coughing or vomiting. In your case this may have been the result of forceful inhalation. The air which leaked out of your lungs has tracked up into your neck and is giving you the sense of discomfort in your neck. You will probably feel this sense of swelling and strangeness in your neck for several days. I recommend that you take it easy for the next several days. You may use ibuprofen and acetaminophen as needed for discomfort. Avoid activities which might cause any straining. No heavy lifting. No significant exercise. Please work on getting a regular primary care doctor. I have provided you the contact information for a few local practices. You can also contact your insurance to see if they have assigned you a primary care doctor. Return to the emergency room if you feel significantly worse. Prescriptions: New ibuprofen 400 mg tablet 400 mg PO Q6H PRN (Reason: pain) Qty: 14 0RF acetaminophen 500 mg capsule 1,000 mg PO Q8H PRN (Reason: fever or pain) Qty: 14 0RF No Action prednisone 20 mg tablet 40 mg PO DAILY 4 Days Qty: 8 0RF albuterol sulfate [Ventolin HFA] 90 mcg/actuation HFA aerosol inhaler 2 puff inhalation Q4-6H PRN (Reason: shortness of breath or wheezing) Qty: 1 0RF acetaminophen 500 mg tablet 1,000 mg PO QID PRN (Reason: pain) Qty: 30 0RF cyclobenzaprine 5 mg tablet 5 mg PO TID PRN (Reason: muscle spasm) Qty: 14 0RF Rx Instructions: This medication may cause drowsiness so no driving for 8 hours after taking ibuprofen 600 mg tablet 600 mg PO Q6H PRN (Reason: pain) Qty: 20 0RF ibuprofen 600 mg tablet 600 mg PO Q6H PRN (Reason: pain) Qty: 30 0RF [id number]-ozcggiymvixx-XO 4-10-20 mg/5 mL liquid 10 ml PO Q4H 7 Days Qty: 420 0RF Rx Instructions: Maximum 4 doses per day albuterol sulfate [ProAir HFA] 90 mcg/actuation HFA aerosol inhaler 2 puff inhalation Q4-6H PRN (Reason: shortness of breath or wheezing) Qty: 8.5 0RF Referrals: [facility] [Provider Group] [facility] [Provider Group] [facility] [Provider Group] Discharge Date/Time: 08/04/24 07:07 Print Language: Vincentian
[2024-08-04 03:12] LABS: Basophils Percent Auto 0.2 % (0-2); Eosinophils Absolute Auto 0.2 X10*3/uL (0.0-0.4); Hematocrit 47.1 % (42.0-52.0); Hemoglobin 15.9 g/dl (14.0-18.0); Imm Gran Abs Auto 0.09 X10*3/uL (0.00-0.03); Imm Gran Pct Auto 0.5 % (0.0-0.4); Lymphocytes Absolute Auto 2.5 X10*3/uL (1.2-4.9); Lymphocytes Percent Auto 14.7 % (20-40); MANUAL DIFF FLAG SCAN; Mean Corpuscular HGB Conc 33.8 g/dl (31.0-36.0); Mean Corpuscular Hemoglobin 26.9 pg (27.0-33.0); Mean Corpuscular Volume 79.8 fL (80.0-98.0); Mean Platelet Volume 10.1 fL (9.4-12.4); Monocytes Absolute Auto 1.7 X10*3/uL (0.1-1.2); Monocytes Percent Auto 9.7 % (2-11); Neutrophils Absolute Auto 12.6 x10*3/uL (2.0-8.3); Neutrophils Percent Auto 73.9 % (45-73); Platelet Count 239 X10*3/uL (160-400); Red Cell Distribution Width 13.9 % (11.0-16.0); SCAN SMEAR FLAG 1; White Blood Count 17.1 X10*3/uL (4.8-10.8)
--- NOTE | 2024-08-04 03:12 | PC.NURSE ---
pt brought into room 5 , iv line placed #20g RAC, blood work collected and sent to lab, pt placed on director of cardiac rehabilitation. answering questions appropriately at this time. pt to xray now.
[2024-08-04] MEDS: diazePAM 10 MG/2 ML CARTRIDGE 5 MG IVPUSH (03:28)
[2024-08-04 03:29] LABS: Alanine Aminotransferase 22 U/L (0-40); Albumin Level 4.6 g/dL (3.5-5.0); Alkaline Phosphatase 92 U/L (39-117); Anion Gap 17 (12-20); Aspartate Amino Transferase 26 U/L (5-37); Bilirubin Total 1.1 mg/dL (0.0-1.0); Blood Urea Nitrogen 17 mg/dL (9-16); Calcium 9.9 mg/dL (8.4-10.2); Carbon Dioxide 23 mmol/L (22-29); Chloride 105 mmol/L (96-108); Creatinine Clr Calc Pharmacy 150.4; Estimated Glomerular Filt Rate > 60; Glucose Random 112 mg/dL (60-115); Potassium 3.4 mmol/L (3.3-5.1); Sodium 142 mmol/L (135-145); Total Protein 7.3 g/dL (6.5-8.0)
[2024-08-04 03:32] LABS: SLIDE REVIEW VERIFIED
[2024-08-04 03:42] LABS: IDNOW Serial# 58CA691E; Strep A Nucleic Acid Negative (Negative)
[2024-08-04 03:42] LABS: Troponin-I High Sensitivity < 2.7 ng/L (<3.5-35.0)
[2024-08-04] MEDS: Acetaminophen 1,000 MG/100 ML PIGGYBACK 400 MG IV (03:43)
[2024-08-04] MEDS: Ketorolac Tromethamine 15 MG/ML VIAL 10 MG IVPUSH (03:43)
[2024-08-04] MEDS: 0.9 % Sodium Chloride 1,000 ML 999 ML IV (03:43)
[2024-08-04 03:45] VITALS: BP 133/64; PULSE 74; RESP 12; O2SAT 97
[2024-08-04 04:06] LABS: Influenza A PCR NEGATIVE (Negative); Influenza B PCR NEGATIVE (Negative); Resp Syncy Virus RNA Qual PCR NEGATIVE (Negative); SARS COV2 PCR INHOUSE NEGATIVE (Negative)
[2024-08-04 07:03] VITALS: BP 113/62; PULSE 78; RESP 12; TEMP 36.6; O2SAT 95
== END 2024-08-04 07:07 | disposition home or self-care (01) ==
PROVIDERS: Emergency Provider Emergency Medicine
DX: J98.2 Interstitial emphysema (principal); R07.9 Chest pain, unspecified; R22.1 Localized swelling, mass and lump, neck; Z03.818 Encounter for observation for suspected exposure to other biological agents ruled out
CPT/HCPCS: 0241U; 71046; 80053; 84484; 85025; 87651; 93005; 96361; 96365; 96375; 99284; 99285; J0131; J1885; J3360

== ENCOUNTER → 2024-08-04 02:47 | Outpatient (BNV) | payer SELFPAY | PROVIDERS: Emergency Provider Emergency Medicine; Visit Provider Internal Medicine | DX: I49.9 Cardiac arrhythmia, unspecified (principal) | CPT/HCPCS: 93010 ==

== ENCOUNTER → 2024-08-04 03:14 | Outpatient (BNV) | payer SELFPAY | PROVIDERS: Emergency Provider Emergency Medicine; Visit Provider Radiology Diagnostic Radiology | DX: J98.2 Interstitial emphysema (principal) | CPT/HCPCS: 71046 ==